=== PATIENT | male | born 1995 | race Caucasian/White ===

== ENCOUNTER 2023-03-30 09:30 | Emergency (ER) | payer BC, SELFPAY ==
[2023-03-30 09:41] VITALS: BP 106/65; PULSE 78; RESP 16; TEMP 37.4; O2SAT 98
--- NOTE | 2023-03-30 10:11 | ED.URI ---
HPI - URI/Sore Throat General Chief Complaint: Upper Respiratory Infection Stated Complaint: Swollen eyes;Sore Throat Time Seen by Provider: 03/30/23 10:00 Source: patient, RN notes reviewed and old records reviewed Mode of arrival: ambulatory Limitations: no limitations History of Present Illness HPI Narrative: 27-year-old male who presents to [facility] with complaints sore throat since Wednesday with no known fevers but does admit to having some sweats and chills and also intermittent headache pain. Patient also has bilateral eye redness with yellowish drainage since yesterday with itching denies any visual changes. Patient reports that he has taken some Tylenol for his headache and he has taken an allergy pill. Patient denies any shortness of breath or any acute cough, denies any nausea or vomiting or diarrhea or any body aches. Patient has been COVID vaccinated and had flu shot last fall. MD elicited complaint: sore throat and other (headache bilateral eye redness and drainage) Onset (ago): day(s) (3) Pain scale (0-10): 3 Able to tolerate fluids by mouth: Yes Exacerbating factors: swallowing Treatments prior to arrival: acetaminophen and other ( allergy pill) Related Data Allergies Allergy/AdvReac Type Severity Reaction Status Date / Time No Known Allergies Allergy Mild Unverified 03/30/23 10:03 Review of Systems Review of Systems: CONSTITUTIONAL: positive malaise, reports chills, sweats, unknown if fever. EYES: Denies visual changes,positive for bilateral redness, and discharge. ENT: Reports rhinorrhea, congestion,no sinus pain, no otalgia positive sore throat. CARDIOVASCULAR: Denies chest pain, palpitations, or edema. RESPIRATORY: Reports no cough.? Denies dyspnea. GASTROINTESTINAL: Denies abdominal pain, nausea, vomiting, diarrhea SKIN: Denies rash or itching. MUSCULOSKELETAL: Denies myalgia. NEUROLOGIC: reports headache. All systems reviewed & are unremarkable except as noted in HPI and below PMFSH Past Medical History Medical History No significant medical problems Surgical History Surgical History (Updated 03/31/23 @ 08:48 by Charlee Anton NP) No history of previous surgery Social History Social History (Updated 03/30/23 @ 10:30 by Charlee Anton NP) Smoking status: Never smoker Alcohol intake: current Alcohol use details: social Substance use type: does not use Gender identity (if verbalized by the patient): Male Comments At time of signature, agree with nursing past medical, surgical, social and family history. There is no relevant family history pertinent to the presenting complaint Exam Narrative: GENERAL: Well-appearing, well-nourished, and in no acute distress. HEAD: Normocephalic EYES: PERRLA, EOMI bilateral eye sclera and conjunctiva redness with some mucous drainage denies sharp pain reports itching ENT: Nares clear, turbinates edematous and erythematous, clear discharge. Mucous membranes moist. TM pearly marin with dull light reflex bilaterally; no tragal tenderness. Oropharynx erythematous without lesions. Tonsils red enlarged and without exudate, no drooling, no hoarseness, no trismus, uvula midline. NECK: Supple. lymphadenopathy CHEST: Clear to auscultation, breath sounds equal. No wheezing, rhonchi, rales, or stridor. No respiratory distress, speaks in full sentences. no cough noted SAO2 98% on room air HEART: Regular rate and rhythm. No murmur heard. SKIN: Warm, dry, no rash. NEURO: Alert and oriented x3. PSYCH: Normal mood and affect Course Course Emergency Course: Patient is aware of diagnosis, understands and agrees to treatment plan.? Anticipatory guidance given.? Patient agrees to follow-up as directed and is aware of reasons to seek care at the emergency department. Portions of this record may have been created with voice recognition software Level of Care: Exp
== END 2023-03-30 10:29 | disposition home or self-care (01) ==
PROVIDERS: Emergency Provider Registered Nurse; PCP Family Medicine Sports Medicine
DX: J02.0 Streptococcal pharyngitis (principal); H10.33 Unspecified acute conjunctivitis, bilateral
CPT/HCPCS: 87880; 99213; G0463